=== PATIENT | female | born 1940 | race Caucasian/White ===

== ENCOUNTER 2017-04-03 16:11 | Emergency (ER) | payer MEDICARE ==
[~2017-04-03] VITALS: Ht 157.5 cm; Wt 43.0 kg
[2017-04-03 17:38] LABS: HEMATOCRIT 44.7 % (37.0-47.0); IMMATURE GRANULOCYTES 0.5 % (0.0-1.0); MEAN CELL VOLUME 96.3 fL CALC (80.0-100.0); MEAN CORPUSCULAR HGB 32.3 pG CALC (26.0-32.0); MEAN CORPUSCULAR HGB CONC 33.6 g/L CALC (32.0-36.0); NEUT# 3.27 thou/uL (2.00-7.15); RED BLOOD COUNT 4.64 mill/uL (4.20-5.60); RED CELL DISTRI WIDTH 13.8 % (11.5-15.5)
[2017-04-03 17:49] LABS: ALBUMIN 4.5 g/dL (3.2-5.0); ALKALINE PHOSPHATASE 195 u/l (38-126); ANION GAP 16 (6-22 (CALC)); BILIRUBIN, TOTAL 0.6 mg/dL (0.0-1.4); BUN 16 mg/dL (8-23); BUN/CREATININE RATIO 26 (12-20 (CALC)); CALCIUM 9.6 mg/dL (8.4-10.2); CARBON DIOXIDE 27 mmol/l (22-30); CHLORIDE 94 mmol/l (95-108); CREATININE 0.6 mg/dL (0.5-1.0); GFR > 60 ML/MIN (>=60 (CALC)); GFR FOR AFR.AMER. > 60 ML/MIN (>=60 (CALC)); GLUCOSE 91 mg/dL (82-115); POTASSIUM 4.5 mmol/l (3.5-5.1); SGOT/AST 41 u/l (9-36); SGPT/ALT 26 u/l (11-66); SODIUM 133 mmol/l (137-146)
--- NOTE | 2017-04-03 17:58 | NUR ---
BREATHING TREATMENT GIVEN BACK TO BACK. BREATHING TECH. FOR GOOD DEPOSITION TO THE LUNGS.
[2017-04-03 18:01] LABS: MYOGLOBIN 47 ng/mL (0 - 62)
[2017-04-03] MEDS ORDERED: AMOXICILLIN500 M2 PO (18:45)
[2017-04-03] MEDS ORDERED: MEDDOSEPAK PO (18:45)
[2017-04-03] MEDS ORDERED: VENTOLIN HFA IN (18:45)
[2017-04-03 18:50] VITALS: BP 155/82
== END 2017-04-03 19:07 | disposition home or self-care (01) ==
LOC: ED 16:11
PROVIDERS: Emergency Medicine
DX: J44.1 Chronic obstructive pulmonary disease with (acute) exacerbation (principal); F17.210 Nicotine dependence, cigarettes, uncomplicated

== ENCOUNTER 2018-03-30 15:00 | Emergency (ER) | payer MEDICARE ==
[~2018-03-30] VITALS: Ht 157.5 cm; Wt 35.9 kg
[~2018-03-30 15:00] MED LIST: AMOXICILLIN500 M2 PO; MEDDOSEPAK PO; VENTOLIN HFA IN
[2018-03-30] MEDS ORDERED: MUPIROCIN21 (15:45)
[2018-03-30] MEDS ORDERED: BACTRIM1 TAB PO (15:45)
[2018-03-30 16:36] LABS: HEMATOCRIT 42.1 % (37.0-47.0); HEMOGLOBIN 13.8 g/dl (12.0-16.0); IMMATURE GRANULOCYTES 0.2 % (0.0-5.0); MEAN CELL VOLUME 89.6 fL CALC (80.0-100.0); MEAN CORPUSCULAR HGB 29.4 pG CALC (26.0-32.0); MEAN CORPUSCULAR HGB CONC 32.8 g/L CALC (32.0-36.0); NEUT# 5.64 thou/uL (2.00-7.15); RED BLOOD COUNT 4.7 mill/uL (4.20-5.60); RED CELL DISTRI WIDTH 14.6 % (11.5-15.5)
[2018-03-30 17:26] LABS: ALBUMIN 3.6 g/dL (3.2-5.0); ALKALINE PHOSPHATASE 143 u/l (38-126); ANION GAP 13 (6-22 (CALC)); BILIRUBIN, TOTAL 0.4 mg/dL (0.0-1.4); BUN 15 mg/dL (8-23); BUN/CREATININE RATIO 22 (12-20 (CALC)); CARBON DIOXIDE 29 mmol/l (22-30); CHLORIDE 96 mmol/l (95-108); CREATININE 0.7 mg/dL (0.5-1.0); GFR > 60 ML/MIN (>=60 (CALC)); GFR FOR AFR.AMER. > 60 ML/MIN (>=60 (CALC)); SGOT/AST 33 u/l (9-36); SODIUM 133 mmol/l (137-146); TOTAL PROTEIN 6.9 g/dL (6.3-8.2)
[2018-03-30] MEDS ORDERED: CLINDAMYCIN300 M1 PO (17:31)
[2018-03-30 17:34] VITALS: BP 125/68
== END 2018-03-30 17:44 | disposition home or self-care (01) ==
LOC: ED 15:00
DX: L03.116 Cellulitis of left lower limb (principal); L03.115 Cellulitis of right lower limb